=== PATIENT | female | born 1990 | race Caucasian/White ===

== ENCOUNTER 2020-01-11 10:14 | Outpatient (CLI) | payer OTHER, SELFPAY ==
--- NOTE | 2020-01-22 16:07 | P.PCNPFT_ITS ---
PFT Interpretation PFT Interpretation: DOS: 01/11/2020 REQUESTING: Dr Sims REASON FOR TESTING: Shortness of breath PULMONARY FUNCTION TESTS Results are not reproducible as the patient could not exhale 3 times for longer than 6 seconds. Spirometry: FEV1 is 107%, FVC 105%, and FEV1% is 82%, all normal. No change with bronchodilator. Lung volumes: TLC 101%. RV is 72%. Mild increased in airway resistance at 139%. Diffusion: DLCO normal 97%. Flow volume loop: Flattened inspiratory loop consistent with variable extrathora cic obstruction such as a unilateral vocal cord paralysis. IMPRESSION: Normal spirometry, lung volumes and diffusion. The inspiratory loop is flattened, consistent with a variable extrathoracic obstruction such as a unilateral vocal cord paralysis. Carolin Sims MD
== END 2020-01-11 10:15 | disposition home or self-care (01) ==
LOC: ANHPFT 10:15
PROVIDERS: PCP Internal Medicine Gastroenterology; Visit Provider Internal Medicine Critical Care Medicine
DX: R06.00 Dyspnea, unspecified (principal); J43.9 Emphysema, unspecified
CPT/HCPCS: 94060; 94726; 94729; 95012